=== PATIENT | male | born 1985 | race Caucasian/White ===

== ENCOUNTER 2017-01-19 15:52 | Emergency (ER) | payer BC ==
[~2017-01-19] VITALS: Ht 177.8 cm; Wt 99.3 kg
[2017-01-19 18:00] LABS: ADD MIUA? NO; BILIRUBIN NEGATIVE; BLOOD NEGATIVE; COLOR YELLOW ((YELLOW)); GLUCOSE (STRIP) NEGATIVE; KETONES 5; LEUKOCYTES NEGATIVE; NITRITE NEGATIVE; PROTEIN (STRIP) NEGATIVE; SPECIFIC GRAVITY 1.016 (1.000-1.030); UROBILINOGEN 0.2 MG/DL (0.2-1.0)
[2017-01-19] MEDS ORDERED: LIDODERM 5% P1 PATCH TD (18:49)
[2017-01-19] MEDS ORDERED: NORCO 5/3251 TABLET PO (18:49)
[2017-01-19] MEDS ORDERED: NAPROSYN500 MG PO (18:49)
[2017-01-19] MEDS ORDERED: FLEXERIL10 MG PO (18:49)
[2017-01-19 18:57] VITALS: BP 130/81
== END 2017-01-19 19:02 | disposition home or self-care (01) ==
LOC: EME 15:52
PROVIDERS: Nurse Practitioner Family
DX: M62.830 Muscle spasm of back (principal); S33.5XXA Sprain of ligaments of lumbar spine, initial encounter; X50.1XXA Overexertion from prolonged static or awkward postures, initial encounter
CPT/HCPCS: 72100; 81003; 99281; 99283; J1885; J2270